=== PATIENT | male | born 1990 | race Caucasian/White ===

== ENCOUNTER 2016-07-01 08:24 | Emergency (ER) | payer MEDICAID, OTHER ==
[~2016-07-01] VITALS: Ht 177.8 cm; Wt 70.0 kg
[~2016-07-01 08:24] MED LIST: CLON1 PO
[2016-07-01 08:28] VITALS: BP 134/85; PULSE 95; RESP 15; TEMP 98.4; O2SAT 99
[2016-07-01] MEDS ORDERED: METOCLOPRAMIDE HCL 10 MG/2 ML VIAL IM ONE (09:45)
[2016-07-01] MEDS ORDERED: diphenhydrAMINE HCL 50 MG/ML VIAL IM ONE (09:45)
--- NOTE | 2016-07-01 09:59 | PD ---
HPI Chief Complaint: Headache Time Seen by Provider: 09:28 Travel History International Travel<30 days: No Contact w/Intl Traveler<30days: No Traveled to known affect area: No History of Present Illness HPI Patient is a 26-year-old male with history of headache, bipolar disorder/ anxiety here with complaint of headache. Patient works at a [employer]. Yesterday while at work he had a gradual onset frontal, bilateral headache. This is throbbing in nature. Some mild photophobia but no phonophobia. Nausea but no vomiting. Patient has a history of headaches, but states that this one is worse and that it has not responded to Motrin 400 mg, Aleve 1 at home. He has not had any nocturnal symptoms, fevers, chills. No familial history of intracranial mass lesion, aneurysm. PFSH Past Medical History Bipolar Disorder: Yes Anxiety: Yes (PTSD) Diabetes: No Diminished Hearing: No Headaches: Yes Musculoskeletal: Yes (2 BULGIC DISCS) Neurologic: Yes (QUESTION BRAIN DAMAGE) Psychiatric: Yes Immunizations Current: Yes Seizures: Yes (CHILDHOOD BUT GREW OUT OF THEM- GRANDMAL @ 4 Y/O) Social History Alcohol Use: Yes (beer socially, last drink was approx 11:30pm) Tobacco Use: Yes (1/2 ppd) Substance Use: Yes (Hx of ETOH abuse) Allergies-Medications (Allergen,Severity, Reaction): Coded Allergies: No Known Allergies (Verified , 06/03/13) Reported Meds & Prescriptions Reported Meds & Active Scripts Active Reported Klonopin (Clonazepam) 1 Mg Tab 1 Mg PO BID Review of Systems Except as stated in HPI: all other systems reviewed are Neg Physical Exam Narrative GENERAL: Well-appearing male in no acute distress SKIN: Focused skin assessment warm/dry. HEAD: Atraumatic. Normocephalic. EYES: Pupils equal and round. 3 mm, EMOI, no afferent pupillary defect. No scleral icterus. No injection or drainage. ENT: No nasal bleeding or discharge. Mucous membranes pink and moist. NECK: Supple without bruit CARDIOVASCULAR: Regular rate and rhythm. RESPIRATORY: No accessory muscle use. MUSCULOSKELETAL: Moves all extremities normally, normal gait NEUROLOGICAL: Awake and alert. No obvious cranial nerve deficits. Motor grossly within normal limits. Normal speech. PSYCHIATRIC: Appropriate mood and affect; insight and judgment normal. Data Data Last Documented VS Vital Signs Date Time Temp Pulse Resp B/P Pulse Ox O2 Delivery O2 Flow Rate FiO2 07/01/16 09:05 98 07/01/16 08:28 98.4 95 15 134/[address] Brain W/O Iv Contrast(Rout) (07/01/16 09:34) Diphenhydramine Inj (Benadryl Inj) (07/01/16 09:45) Metoclopramide Inj (Reglan Inj) (07/01/16 09:45) Ketorolac Inj (Toradol Inj) (07/01/16 10:15) MDM Medical Decision Making Medical Screen Exam Complete: Yes Emergency Medical Condition: Yes Medical Record Reviewed: Yes Differential Diagnosis 26-year-old male with history of headache, bipolar disorder/anxiety here with gradual onset headache since yesterday at around 1 PM. Differential includes tension headache, cluster headache, migraine headache. Patient has been afebrile, no neck stiffness or noctural headaches, is well-appearing, with a normal neurologic examination. This makes infection very unlikely. Patient does have history of headache with normal neurologic examination here, though complains that this is not responsive as his typical headaches in the past haven 't japr-yzy-vbnxeay NSAIDs. My suspicion for subarachnoid hemorrhage is exceedingly low. Narrative Course Patient given 50 mg Benadryl, [address] of the brain showed no acute abnormality. Patient felt improved after 60 mg Toradol and will be discharged home. I do not think he warrants lumbar puncture at this time. Diagnosis Primary Impression: Headache Qualified Code: R51 - Acute nonintractable headache, unspecified headache type Referrals: Primary Care Physician as needed Departure Forms: Tests/Procedures, Work Release Enter return to work date: July 02, 2016 Additional Instructions: Excedrin Migraine as needed for headache. Med/Other Pt SpecificInfo: No Change to Meds Disposition: 01 DISCHARGE HOME Condition: Stable Aydee Norris MD July 01, 2016 09:59
--- NOTE | 2016-07-01 10:08 | RADRPT ---
EXAM DATE/TIME: 07/01/2016 09:57 [facility] COMPARISON: CT BRAIN W/O CONTRAST, June 03, 2013, 7:32. INDICATIONS : Headache and nausea since yesterday. RADIATION DOSE: 39.34 CTDIvol (mGy) MEDICAL HISTORY : None SURGICAL HISTORY : None. ENCOUNTER: Initial ACUITY: 1 day PAIN SCALE: 2/10 LOCATION: Bilateral frontal TECHNIQUE: Multiple contiguous axial images were obtained of the head. Using automated exposure control and adj ustment of the mA and/or kV according to patient size, radiation dose was kept as low as reasonably a chievable to obtain optimal diagnostic quality images. FINDINGS: CEREBRUM: The ventricles are normal for age. No evidence of midline shift, mass lesion, hemorrhage or acute in farction. No extra-axial fluid collections are seen. Cavum septum pellucidum. POSTERIOR FOSSA: The cerebellum and brainstem are intact. The 4th ventricle is midline. The cerebellopontine angle i s unremarkable. EXTRACRANIAL: The visualized portion of the orbits is intact. SKULL: The calvaria is intact. No evidence of skull fracture. CONCLUSION: No acute intracranial disease. Karlo Swift MD on July 01, 2016 at 10:02 Board Certified Radiologist. This report was verified electronically.
[2016-07-01] MEDS ORDERED: KETOROLAC TROMETHAMINE 60 MG/2 ML (IM) VIAL IM ONE (10:15)
== END 2016-07-01 11:42 | disposition home or self-care (01) ==
LOC: NEPD 08:24
DX: R51 Headache (principal); R11.0 Nausea; H53.149 Visual discomfort, unspecified; F17.210 Nicotine dependence, cigarettes, uncomplicated; F10.10 Alcohol abuse, uncomplicated
CPT/HCPCS: 70450; 96372; 99285; J1200; J1885; J2765

== ENCOUNTER 2016-08-15 04:59 | Observation (INO) | payer OTHER ==
[2016-08-15] VITALS (8 sets, daily range): BP systolic 106–161; BP diastolic 55–90; PULSE 51–80; RESP 18–20; TEMP 97.2–98.2; O2SAT 95–100
[2016-08-15] MEDS ORDERED: SODIUM CHLOR 0.9% 1000 ML INJ 1,000 ML IV SCH (05:13)
[2016-08-15] MEDS ORDERED: ONDANSETRON HCL 4 MG/2 ML VIAL IVP ONE (05:15)
[2016-08-15] MEDS ORDERED: MORPHINE SULFATE 4 MG/ML INJ IV PUSH ONE ×2 (05:15→07:15)
[2016-08-15] MEDS ORDERED: SODIUM CHLORIDE 0.9% FLUSH 10 ML FLUSH IV FLUSH PRN (05:15)
[2016-08-15] MEDS ORDERED: METHOCARBAMOL INJ 1,000 MG in SODIUM CHLOR 0.9% 250 ML INJ 250 ML IV ONE (05:30)
[2016-08-15] MEDS ORDERED: KETOROLAC TROMETHAMINE 30 MG/ML (IVP) VIAL IV PUSH ONE (05:30)
--- NOTE | 2016-08-15 05:30 | PD ---
HPI Chief Complaint: Back/ Neck Pain or Injury Time Seen by Provider: 05:21 Travel History International Travel<30 days: No Contact w/Intl Traveler<30days: No Traveled to known affect area: No History of Present Illness HPI Patient comes in complaining of thoracic spine pain that began around 1900 yesterday. Patient states pain began while he was playing video games. Patient states his tried to massage his back and he took [id number] pain reliever with minimal to no relief of symptoms. Patient reports told him that he was crying out in pain throughout the night. Patient states he awoke at approximately 4:22 this morning went to go the restroom and could not get out of bed secondary to pain. Patient states is the worst pain he has ever felt describes it as a sharp pain that radiates laterally to the left around to the anterior chest. Denies any family history of cardiac disease. Patient reports smoking tobacco but denies any IV or illicit drug use. Denies any fevers. Denies any nausea, vomiting, diaphoresis, headache, neck pain, numbness or tingling anywhere, loss or change in bowel or bladder, or trauma. Patient reports pain takes his breath away making him feel short of breathe. Pain is worse with movement. PFSH Past Medical History Bipolar Disorder: Yes Anxiety: Yes (PTSD) Diabetes: No Diminished Hearing: No Headaches: Yes Musculoskeletal: Yes (2 BULGIC DISCS) Neurologic: Yes (QUESTION BRAIN DAMAGE) Psychiatric: Yes Immunizations Current: Yes Seizures: Yes (IN CHILDHOOD ) Past Surgical History Appendectomy: Yes Social History Alcohol Use: Yes Tobacco Use: Yes (1/2 ppd) Substance Use: Yes (Hx of ETOH abuse) Allergies-Medications (Allergen,Severity, Reaction): Coded Allergies: No Known Allergies (Verified , 06/03/13) Reported Meds & Prescriptions Reported Meds & Active Scripts Active Reported Klonopin (Clonazepam) 1 Mg Tab 1 Mg PO BID Review of Systems Except as stated in HPI: all other systems reviewed are Neg Physical Exam Narrative GENERAL: Well-developed, well nourished, in mild distress, and non-ill appearing. SKIN: Focused skin assessment warm and dry. HEAD: Atraumatic. Normocephalic. EYES: Pupils equal and round. EOMI. No scleral icterus. No injection or drainage. ENT: No nasal bleeding or discharge. Mucous membranes pink and moist. Poor dentition noted. NECK: Trachea midline. Supple. No nuclear rigidity. CARDIOVASCULAR: Regular rate and rhythm. No murmur appreciated. RESPIRATORY: No accessory muscle use. No respiratory distress. Clear to auscultation. Breath sounds equal bilaterally. GASTROINTESTINAL: Abdomen soft, non-tender, nondistended. Hepatic and splenic margins not palpable. Normal bowel sounds 4. No pulsatile mass. No CVA tenderness. MUSCULOSKELETAL: No obvious deformities. No clubbing. No cyanosis. No edema. Full range of motion. There is no crepitus or midline thoracic spine. Patient does report tenderness over the thoracic spine. NEUROLOGICAL: Awake and alert. No obvious cranial nerve deficits. Motor grossly within normal limits. Normal speech. PSYCHIATRIC: Appropriate mood and affect; insight and judgment normal. Data Data Last Documented VS Vital Signs Date Time Temp Pulse Resp B/P Pulse Ox O2 Delivery O2 Flow Rate FiO2 08/15/16 05:04 97.6 80 18 143/85 98 Orders Complete Blood Count With Diff (08/15/16 05:13) Comprehensive Metabolic Panel (08/15/16 05:13) Lipase (08/15/16 05:13) Prothrombin Time / Inr (Pt) (08/15/16 05:13) Act Partial Throm Time (Ptt) (08/15/16 05:13) Urinalysis - C+S If Indicated (08/15/16 05:13) Iv Access Insert/Monitor (08/15/16 05:13) Ecg Monitoring (08/15/16 05:13) Oximetry (08/15/16 05:13) Morphine Inj (Morphine Inj) (08/15/16 05:15) Ondansetron Inj (Zofran Inj) (08/15/16 05:15) Sodium Chlor 0.9% 1000 Ml Inj (Ns 1000 M (08/15/16 05:13) Sodium Chloride 0.9% Flush (Ns Flush) (08/15/16 05:15) Electrocardiogram (08/15/16 05:13) Chest, Pa & Lat (08/15/16 ) Ketorolac Inj (Toradol Inj) (08/15/16 05:30) Methocarbamol Inj (Robaxin Inj) (08/15/16 05:30) MDM Medical Decision Making Medical Screen Exam Complete: Yes Emergency Medical Condition: Yes Differential Diagnosis Pancreatitis, pneumonia, pneumothorax, renal calculi, electrolyte abnormality, musculoskeletal pain, other Narrative Course Patient was seen and examined. Initial laboratory and radiologic studies were ordered. Patient transferred to the medical bed and care was transferred to Dr. Umaña. Please see her documentation for final diagnosis and disposition. Robbie Ryan Aug 15, 2016 05:30
[2016-08-15 05:52] LABS: AUTOMATED NEUTROPHIL # 3.2 TH/MM3 (1.8-7.7); BASOPHIL % 0.6 % (0.0-2.0); EOSINOPHIL # 0.2 TH/MM3 (0-0.4); EOSINOPHIL % 2.9 % (0.0-4.0); HEMATOCRIT 44.4 % (39.0-51.0); HEMO FLAGS DIFF FINAL; LYMPH % 42.8 % (9.0-44.0); MEAN CELL VOLUME 84.5 FL (80.0-100.0); MEAN CORPUSCULAR HEMOGLOBIN 28.8 PG (27.0-34.0); MEAN CORPUSCULAR HGB CONC 34.1 % (32.0-36.0); MONO % 8.1 % (0.0-8.0); NEUT % 45.6 % (16.0-70.0); PLATELET COUNT 177 TH/MM3 (150-450); RED BLOOD COUNT 5.26 MIL/MM3 (4.50-5.90); RED CELL DISTRIBUTION WIDTH 12.4 % (11.6-17.2); WHITE BLOOD COUNT 6.9 TH/MM3 (4.0-11.0)
[2016-08-15 06:08] LABS: APTT (PATIENT) 27.3 SEC (24.3-30.1); PROTHROMBIN TIME - PATIENT 10.6 SEC (9.8-11.6)
--- NOTE | 2016-08-15 06:18 | RADRPT ---
EXAM DATE/TIME: 08/15/2016 05:53 [facility] COMPARISON: CHEST PA & LAT, June 03, 2013, 7:28. INDICATIONS : Shortness of breath and left sided chest/back pain. MEDICAL HISTORY : None. SURGICAL HISTORY : None. ENCOUNTER: Initial ACUITY: 1 day PAIN SCORE: Non-responsive. LOCATION: chest FINDINGS: PA and lateral views of the chest demonstrate the lungs to be symmetrically aerated without evidence of mass, infiltrate or effusion. The cardiomediastinal contours are unremarkable. Osseous structure s are intact. CONCLUSION: No acute cardiopulmonary process. Bryson Zhao MD on August 15, 2016 at 6:16 Board Certified Radiologist. This report was verified electronically.
[2016-08-15 06:21] LABS: ANION GAP 8 MEQ/L (5-15); AST (GOT) 16 U/L (15-37); BICARBONATE 25.4 MEQ/L (21.0-32.0); BLOOD UREA NITROGEN 14 MG/DL (7-18); CHLORIDE 106 MEQ/L (98-107); GLOMERULAR FILTRATION RATE 91 ML/MIN (>89); POTASSIUM 3.6 MEQ/L (3.5-5.1); SODIUM (NA) 139 MEQ/L (136-145)
[2016-08-15 06:23] LABS: ALT (GPT) 21 U/L (12-78)
[2016-08-15 06:24] LABS: ALKALINE PHOSPHATASE 93 U/L (45-117); TOTAL BILIRUBIN ADULT 0.6 MG/DL (0.2-1.0)
--- NOTE | 2016-08-15 07:17 | PD ---
Physical Exam Narrative I, Dr. Umaña, have reviewed the advance practice practitioner's documentation and am in agreement, met with the patient face to face, made the diagnosis, and the medical decision making was done by me. *My assessment and Findings: Patient is a 26 year old male who comes in complaining of back pain that radiates to the front. He says it started last night and got worse. He does admit to drinking heavily over the weekend. On exam, pain cannot be elicited. Abdomen is soft and nontender. Data Data Last Documented VS Vital Signs Date Time Temp Pulse Resp B/P Pulse Ox O2 Delivery O2 Flow Rate FiO2 08/15/16 06:26 18 08/15/16 05:30 98 Room Air 08/15/16 05:04 97.6 80 143/85 Orders Complete Blood Count With Diff (08/15/16 05:13) Comprehensive Metabolic Panel (08/15/16 05:13) Lipase (08/15/16 05:13) Prothrombin Time / Inr (Pt) (08/15/16 05:13) Act Partial Throm Time (Ptt) (08/15/16 05:13) Urinalysis - C+S If Indicated (08/15/16 05:13) Iv Access Insert/Monitor (08/15/16 05:13) Ecg Monitoring (08/15/16 05:13) Oximetry (08/15/16 05:13) Morphine Inj (Morphine Inj) (08/15/16 05:15) Ondansetron Inj (Zofran Inj) (08/15/16 05:15) Sodium Chlor 0.9% 1000 Ml Inj (Ns 1000 M (08/15/16 05:13) Sodium Chloride 0.9% Flush (Ns Flush) (08/15/16 05:15) Electrocardiogram (08/15/16 05:13) Chest, Pa & Lat (08/15/16 ) Ketorolac Inj (Toradol Inj) (08/15/16 05:30) Methocarbamol Inj (Robaxin Inj) (08/15/16 05:30) Morphine Inj (Morphine Inj) (08/15/16 07:15) Labs Laboratory Tests Test 08/15/16 05:33 White Blood Count 6.9 TH/MM3 Red Blood Count 5.26 MIL/MM3 Hemoglobin 15.2 GM/DL Hematocrit 44.4 % Mean Corpuscular Volume 84.5 FL Mean Corpuscular Hemoglobin 28.8 PG Mean Corpuscular Hemoglobin 34.1 % Concent Red Cell Distribution Width 12.4 % Platelet Count 177 TH/MM3 Mean Platelet Volume 8.7 FL Neutrophils (%) (Auto) 45.6 % Lymphocytes (%) (Auto) 42.8 % Monocytes (%) (Auto) 8.1 % Eosinophils (%) (Auto) 2.9 % Basophils (%) (Auto) 0.6 % Neutrophils # (Auto) 3.2 TH/MM3 Lymphocytes # (Auto) 3.0 TH/MM3 Monocytes # (Auto) 0.6 TH/MM3 Eosinophils # (Auto) 0.2 TH/MM3 Basophils # (Auto) 0.0 TH/MM3 CBC Comment DIFF FINAL Differential Comment Prothrombin Time 10.6 SEC Prothromb Time International 1.0 RATIO Ratio Activated Partial 27.3 SEC Thromboplast Time Sodium Level 139 MEQ/L Potassium Level 3.6 MEQ/L Chloride Level 106 MEQ/L Carbon Dioxide Level 25.4 MEQ/L Anion Gap 8 MEQ/L Blood Urea Nitrogen 14 MG/DL Creatinine 1.01 MG/DL Estimat Glomerular Filtration 91 ML/MIN Rate Random Glucose 105 MG/DL Calcium Level 9.0 MG/DL Total Bilirubin 0.6 MG/DL Aspartate Amino Transf 16 U/L (AST/SGOT) Alanine Aminotransferase 21 U/L (ALT/SGPT) Alkaline Phosphatase 93 U/L Total Protein 7.0 GM/DL Albumin 4.0 GM/DL Lipase 623 U/L [facility] Supervised Visit with SARA: Yes Narrative Course Labs show an elevated lipase to 623. Patient is still having pain. He was given Toradol and Morphine as well as IVF. Given additional morphine. Patient will be placed on observation. Diagnosis Primary Impression: Pancreatitis Qualified Code: K85.20 - Alcohol-induced acute pancreatitis without infection or necrosis Admitting Information Admitting Physician Requests: Observation Condition: Stable Juani Umaña MD Aug 15, 2016 07:17
[2016-08-15] MEDS ORDERED: ONDANSETRON HCL 4 MG/2 ML VIAL IV PUSH PRN (08:00)
[2016-08-15] MEDS: PANTOPRAZOLE SODIUM 40 MG VIAL IV PUSH SCH (08:00)
[2016-08-15] MEDS: SODIUM CHLOR 0.9% 1000 ML INJ 1,000 ML IV SCH ×2 (11:07→17:27)
[2016-08-15 11:32] LABS: BACTERIA, URINE RARE /hpf; BLOOD, URINE NEG (NEG); CALCIUM OXALATE CRYSTALS,URINE OCC /hpf; COMMENT (UR) CULT NOT INDICATED; CULTURE IF INDICATED CULT NOT INDICATED; GLUCOSE,URINE NEG (NEG); KETONE, URINE NEG (NEG); MUCUS URINE MANY /lpf (OCC); NITRITE,URINE NEG (NEG); URINE COLOR YELLOW (YELLW/STRAW)
--- NOTE | 2016-08-15 11:44 | HHI.HP ---
[facility] Service [place] [facility] Primary Care Physician No Primary Care Physician Admission Diagnosis pancreatitis, Diagnoses: (1) Pancreatitis Diagnosis: Principal Chief Complaint: back pain Travel History International Travel<30 Days: No Contact w/Intl Traveler <30 Da: No Traveled to Known Affected Are: No History of Present Illness patient is a 26 y/o male with history of GERD who presented to ER with back pain. he says that he started to have back pain last night after he had his dinner. he says that he went to bed but the pain got worse and he woke up again earlier this morning with back pain. the pain had some radiation to the front.pain was associated with mild nausea. he denies any emesis,fever,change in BM, chest pain or sob. Review of Systems Constitutional: DENIES: Fever, Weight loss, Chills, Night Sweats Eyes: DENIES: Blurred vision, Diplopia, Vision loss, Double Vision Ears, nose, mouth, throat: DENIES: Tinnitus, Vertigo, Throat pain, Epistaxis Respiratory: DENIES: Apneas, Cough, Snoring, Wheezing, Hemoptysis, Sputum production, Shortness of breath Cardiovascular: DENIES: Chest pain, Palpitations, Syncope, Dyspnea on Exertion , PND, Lower Extremity Edema, Orthopnea, Claudication Gastrointestinal: COMPLAINS OF: Abdominal pain, Nausea, DENIES: Black stools, Bloody stools, Constipation, Diarrhea, Vomiting, Difficulty Swallowing, Anorexia Genitourinary: DENIES: Urinary frequency, Urgency, Hematuria, Dysuria Musculoskeletal: DENIES: Joint pain, Muscle aches, Stiffness, Joint Swelling Integumentary: DENIES: Rash Neurologic: DENIES: Abnormal gait, Headache, Localized weakness, Paresthesias, Seizures, Speech Problems, Tremor, Poor Balance Psychiatric: DENIES: Anxiety, Confusion, Mood changes, Depression, Hallucinations, Agitation, Suicidal Ideation, Homicidal Ideation, Delusions Past Family Social History Past Medical History GERD Past Surgical History appendectomy Reported Medications prilosec as needed. Allergies: Coded Allergies: No Known Allergies (Verified , 06/03/13) Active Ordered Medications Current Medications Morphine Sulfate (Morphine Inj) 2 mg ONCE ONCE IV PUSH Last administered on 05:41; Start 08/15/16 at 05:15; Stop 08/15/16 at 05:16; Status DC Ondansetron HCl 4 mg 4 mg ONCE ONCE IVP Last administered on 08/15/16 05:41; Start 08/15/16 at 05:15; Stop 08/15/16 at 05:16; Status DC Sodium Chloride (NS 1000 ml Inj) 1,000 ml @ 1,000 mls/hr Q1H IV Last administered on 08/15/16 05:40; Start 08/15/16 at 05:13; Stop 08/15/16 at 06:12; Status DC Sodium Chloride (NS Flush) 2 ml UNSCH PRN IV FLUSH FLUSH AFTER USING IV ACCESS ; Start 08/15/16 at 05:15 Ketorolac Tromethamine 30 mg 30 mg ONCE ONCE IV PUSH Last administered on 06:25; Start 08/15/16 at 05:30; Stop 08/15/16 at 05:31; Status DC Methocarbamol/ Sodium Chloride (Robaxin Inj/NS 250 ml Inj) 260 ml @ 520 mls/hr ONCE ONCE IV Last administered on 08/15/16 06:25; Start 08/15/16 at 05:30; Stop 08/15/16 at 05:59; Status DC Morphine Sulfate (Morphine Inj) 4 mg ONCE ONCE IV PUSH Last administered on 08:40; Start 08/15/16 at 07:15; Stop 08/15/16 at 07:16; Status DC Ondansetron HCl (Zofran Inj) 4 mg Q8HR PRN IV PUSH NAUSEA; Start 08/15/16 at 08: 00 Pantoprazole Sodium 40 mg 40 mg Q24H IV PUSH Last administered on 08/15/16 08: 00; Start 08/15/16 at 08:00 Sodium Chloride (NS 1000 ml Inj) 1,000 ml @ 125 mls/hr Q8H IV Last administered on 08/15/16 11:07; Start 08/15/16 at 09:00 Morphine Sulfate (Morphine Inj) 2 mg Q4HR PRN IV PUSH PAIN SCALE 1 TO 10; Start 08/15/16 at 08:30 Family History not relevant to this presentation. Social History smokes half a pack a day. drinks occasionally. Physical Exam Vital Signs Vital Signs Date Time Temp Pulse Resp B/P Pulse Ox O2 Delivery O2 Flow Rate FiO2 08/15/16 09:07 98.2 52 18 122/66 99 08/15/16 08:48 55 18 131/71 99 Room Air 08/15/16 08:45 18 08/15/16 07:52 18 08/15/16 07:38 51 18 113/66 98 08/15/16 06:26 18 08/15/16 05:30 98 Room Air 08/15/16 05:04 97.6 80 18 143/85 98 Physical Exam GENERAL: This is a well-nourished, well-developed patient, in no apparent distress. SKIN: No rashes, ecchymoses or lesions. Cool and dry. HEAD: Atraumatic. Normocephalic. No temporal or scalp tenderness. EYES: Pupils equal round and reactive. Extraocular motions intact. No scleral icterus. No injection or drainage. ENT: Nose without bleeding, purulent drainage or septal hematoma. Throat without erythema, tonsillar hypertrophy or exudate. Uvula midline. Airway patent. NECK: Trachea midline. No JVD or lymphadenopathy. Supple, nontender, no meningeal signs. CARDIOVASCULAR: Regular rate and rhythm without murmurs, gallops, or rubs. RESPIRATORY: Clear to auscultation. Breath sounds equal bilaterally. No wheezes , rales, or rhonchi. GASTROINTESTINAL: Abdomen soft, non-tender, nondistended. No hepato-splenomegaly , or palpable masses. No guarding. MUSCULOSKELETAL: Extremities without clubbing, cyanosis, or edema. No joint tenderness, effusion, or edema noted. No calf tenderness. Negative Homans sign bilaterally. NEUROLOGICAL: Awake and alert. Cranial nerves II through XII intact. Motor and sensory grossly within normal limits. Five out of 5 muscle strength in all muscle groups. Normal speech. Laboratory Laboratory Tests Test 08/15/16 05:33 White Blood Count 6.9 Red Blood Count 5.26 Hemoglobin 15.2 Hematocrit 44.4 Mean Corpuscular Volume 84.5 Mean Corpuscular Hemoglobin 28.8 Mean Corpuscular Hemoglobin 34.1 Concent Red Cell Distribution Width 12.4 Platelet Count 177 Mean Platelet Volume 8.7 Neutrophils (%) (Auto) 45.6 Lymphocytes (%) (Auto) 42.8 Monocytes (%) (Auto) 8.1 Eosinophils (%) (Auto) 2.9 Basophils (%) (Auto) 0.6 Neutrophils # (Auto) 3.2 Lymphocytes # (Auto) 3.0 Monocytes # (Auto) 0.6 Eosinophils # (Auto) 0.2 Basophils # (Auto) 0.0 CBC Comment DIFF FINAL Differential Comment Prothrombin Time 10.6 Prothromb Time International 1.0 Ratio Activated Partial 27.3 Thromboplast Time Sodium Level 139 Potassium Level 3.6 Chloride Level 106 Carbon Dioxide Level 25.4 Anion Gap 8 Blood Urea Nitrogen 14 Creatinine 1.01 Estimat Glomerular Filtration 91 Rate Random Glucose 105 Calcium Level 9.0 Total Bilirubin 0.6 Aspartate Amino Transf 16 (AST/SGOT) Alanine Aminotransferase 21 (ALT/SGPT) Alkaline Phosphatase 93 Total Protein 7.0 Albumin 4.0 Lipase 623 Result Diagram: 08/15/16 0533 08/15/16 0533 Imaging Last Impressions Chest X-Ray 08/15/16 0000 Signed Impressions: Service Date/Time: Monday, August 15, 2016 05:53 - CONCLUSION: No acute cardiopulmonary process. Bryson Zhao MD Assessment and Plan Assessment and Plan A/P -acute pancreatitis start on liquid diet and advance the diet as tolerated- check the lipase in am. continue with pain control. check GB sonogram. -GERD; start PPI Discussed Condition With the patient and RN. ER physician. Problem Qualifiers (1) Pancreatitis: Qualified Code: K85.20 - Alcohol-induced acute pancreatitis without infection or necrosis Liam Eastman MD Aug 15, 2016 11:44
[2016-08-15] MEDS ORDERED: ACETAMINOPHEN/HYDROcodone 325 MG/5 MG TAB PO PRN ×2 (11:45)
--- NOTE | 2016-08-15 13:22 | EKG ---
Date Performed: 08/15/2016 Time Performed: 05:30:16 PTAGE: 26 years EKG: Sinus rhythm WITH MARKED SINUS ARRHYTHMIA BORDERLINE ECG NO PREVIOUS TRACING DOCTOR: Tyrell Marsh Interpretating Date/Time 08/15/2016 13:21:40
--- NOTE | 2016-08-15 15:18 | RADRPT ---
EXAM DATE/TIME: 08/15/2016 13:26 [facility] COMPARISON: No previous studies available for comparison. INDICATIONS : Abdominal pain. Nausea. MEDICAL HISTORY : GERD. PTSD. Bipolar disorder. Substance abuse. SURGICAL HISTORY : Appendectomy. ENCOUNTER: Initial ACUITY: 1 day PAIN SCORE: 5/10 LOCATION: Right upper quadrant MEASUREMENTS: LIVER: 16.7 cm length COMMON DUCT: 2 mm RIGHT KIDNEY: 10.6 x 4.1 x 4.0 cm FINDINGS: LIVER: Normal echotexture without focal lesion or ductal dilatation. COMMON DUCT: No intraluminal mass or stone visualized. GALLBLADDER: Contains no stones, demonstrates no wall thickening or pericholecystic fluid. PANCREAS: The visualized portions are within normal limits. RIGHT KIDNEY: No evidence of hydronephrosis, stone, or mass. CONCLUSION: 1. Unremarkable right upper quadrant ultrasound examination. 2. Specifically, no sonographic evidence of cholelithiasis or acute cholecystitis. Franki Quinones MD on August 15, 2016 at 15:16 Board Certified Radiologist. This report was verified electronically.
[2016-08-15] MEDS: MORPHINE SULFATE 8 MG/ML INJ IV PUSH PRN ×2 (18:41→23:12)
[2016-08-16 00:27] VITALS: BP 136/68; PULSE 54; RESP 16; TEMP 98; O2SAT 97
[2016-08-16] MEDS: SODIUM CHLOR 0.9% 1000 ML INJ 1,000 ML IV SCH ×2 (01:26→09:00)
[2016-08-16] MEDS: MORPHINE SULFATE 8 MG/ML INJ IV PUSH PRN ×2 (04:08→11:33)
[2016-08-16 04:22] VITALS: BP 129/72; PULSE 45; RESP 17; TEMP 98.2; O2SAT 97
[2016-08-16 08:00] VITALS: BP 116/71; PULSE 53; RESP 17; TEMP 98.5; O2SAT 99
[2016-08-16] MEDS: PANTOPRAZOLE SODIUM 40 MG VIAL IV PUSH SCH (08:39)
--- NOTE | 2016-08-16 11:08 | HHI.PR ---
Subjective Remarks resting comfortably with no distress. says that his back pain has improved. no nausea or vomiting. no other complaints. wants to go home. Objective Vitals Vital Signs Date Time Temp Pulse Resp B/P Pulse Ox O2 Delivery O2 Flow Rate FiO2 08/16/16 08:00 98.5 53 17 116/71 99 08/16/16 04:22 98.2 45 17 129/72 97 08/16/16 04:14 20 08/16/16 00:27 98.0 54 16 136/68 97 08/15/16 21:09 97.2 57 20 119/73 100 08/15/16 16:09 14 08/15/16 14:59 97.6 53 18 106/55 98 08/15/16 12:11 64 18 161/90 95 I/O 08/15/16 08/15/16 08/15/16 08/16/16 08/16/16 08/16/16 07:00 15:00 23:00 07:00 15:00 23:00 Intake Total 1350 ml Balance 1350 ml Intake Oral 350 ml IV Total 1000 ml # Voids 5 Result Diagram: 08/15/16 0533 08/15/16 0533 Imaging Last Impressions Gall Bladder Ultrasound 08/15/16 0000 Signed Impressions: Service Date/Time: Monday, August 15, 2016 13:26 - CONCLUSION: 1. Unremarkable right upper quadrant ultrasound examination. 2. Specifically, no sonographic evidence of cholelithiasis or acute cholecystitis. Franki Quinones MD Chest X-Ray 08/15/16 0000 Signed Impressions: Service Date/Time: Monday, August 15, 2016 05:53 - CONCLUSION: No acute cardiopulmonary process. Bryson Zhao MD Objective Remarks GENERAL: This is a well-nourished, well-developed patient, in no apparent distress. CARDIOVASCULAR: Regular rate and regular rhythm without murmurs, gallops, or rubs. RESPIRATORY: Clear to auscultation. Breath sounds equal bilaterally. No wheezes , rales, or rhonchi. GASTROINTESTINAL: Abdomen soft, non-tender, nondistended. Normal, active bowel sounds MUSCULOSKELETAL: Extremities without clubbing, cyanosis, or edema. NEURO: Alert & Oriented x4 to person, place, time, situation. Moves all ext x4 Procedures none Medications and IVs Current Medications Morphine Sulfate (Morphine Inj) 2 mg ONCE ONCE IV PUSH Last administered on 05:41; Start 08/15/16 at 05:15; Stop 08/15/16 at 05:16; Status DC Ondansetron HCl 4 mg 4 mg ONCE ONCE IVP Last administered on 08/15/16 05:41; Start 08/15/16 at 05:15; Stop 08/15/16 at 05:16; Status DC Sodium Chloride (NS 1000 ml Inj) 1,000 ml @ 1,000 mls/hr Q1H IV Last administered on 08/15/16 05:40; Start 08/15/16 at 05:13; Stop 08/15/16 at 06:12; Status DC Sodium Chloride (NS Flush) 2 ml UNSCH PRN IV FLUSH FLUSH AFTER USING IV ACCESS ; Start 08/15/16 at 05:15 Ketorolac Tromethamine 30 mg 30 mg ONCE ONCE IV PUSH Last administered on 06:25; Start 08/15/16 at 05:30; Stop 08/15/16 at 05:31; Status DC Methocarbamol/ Sodium Chloride (Robaxin Inj/NS 250 ml Inj) 260 ml @ 520 mls/hr ONCE ONCE IV Last administered on 08/15/16 06:25; Start 08/15/16 at 05:30; Stop 08/15/16 at 05:59; Status DC Morphine Sulfate (Morphine Inj) 4 mg ONCE ONCE IV PUSH Last administered on 08:40; Start 08/15/16 at 07:15; Stop 08/15/16 at 07:16; Status DC Ondansetron HCl (Zofran Inj) 4 mg Q8HR PRN IV PUSH NAUSEA Last administered on 08/15/16 18:40; Start 08/15/16 at 08:00 Pantoprazole Sodium 40 mg 40 mg Q24H IV PUSH Last administered on 08/16/16 08: 39; Start 08/15/16 at 08:00 Sodium Chloride (NS 1000 ml Inj) 1,000 ml @ 125 mls/hr Q8H IV Last administered on 08/16/16 01:26; Start 08/15/16 at 09:00 Morphine Sulfate (Morphine Inj) 2 mg Q4HR PRN IV PUSH BREAKTHROUGH PAIN Last administered on 08/16/16 04:08; Start 08/15/16 at 08:30 Acetaminophen/ Hydrocodone Bitart ([place] 5-325 Mg) 1 tab Q4H PRN PO PAIN SCALE 1 TO 5; Start 08/15/16 at 11:45 Acetaminophen/ Hydrocodone Bitart ([place] 5-325 Mg) 2 tab Q4H PRN PO PAIN 6-10 Last administered on 08/15/16 14:41; Start 08/15/16 at 11:45 A/P Assessment and Plan A/P -acute pancreatitis- improved. advance the diet- continue with pain control. -GERD; continue PPI Discharge Planning dc home later today if tolerated the diet. see med list. f/y; pcp. d/w the patient and BANDAR. Liam Eastman MD Aug 16, 2016 11:08
[2016-08-16] MEDS ORDERED: HYDR-3516 PO (11:09)
[2016-08-16] MEDS ORDERED: PROT40TA PO (11:09)
--- NOTE | 2016-08-16 11:10 | HHI.DS ---
Discharge Summary Admission Date Aug 15, 2016 at 07:59 Discharge Date: Aug 16, 2016 Admitting Diagnosis pancreatitis, (1) Pancreatitis ICD Code: K85.90 Diagnosis: Principal Procedures none Brief History - From Admission patient is a 26 y/o male with history of GERD who presented to ER with back pain. he says that he started to have back pain last night after he had his dinner. he says that he went to bed but the pain got worse and he woke up again earlier this morning with back pain. the pain had some radiation to the front.pain was associated with mild nausea. he denies any emesis,fever,change in BM, chest pain or sob. CBC/BMP: 08/15/16 0533 08/15/16 0533 Significant Findings Laboratory Tests Test 08/15/16 08/15/16 05:33 11:00 Monocytes (%) (Auto) 8.1 % (0.0-8.0) Lipase 623 U/L (73-393) Urine Specific [place] 1.041 (1.002-1.035) Urine Protein 30 mg/dL (NEG-TRACE) Urine Calcium Oxalate Crystals OCC /hpf (NONE) Urine Bacteria RARE /hpf (NONE) Urine Mucus MANY /lpf (OCC) Imaging Last Impressions Gall Bladder Ultrasound 08/15/16 0000 Signed Impressions: Service Date/Time: Monday, August 15, 2016 13:26 - CONCLUSION: 1. Unremarkable right upper quadrant ultrasound examination. 2. Specifically, no sonographic evidence of cholelithiasis or acute cholecystitis. Franki Quinones MD Chest X-Ray 08/15/16 0000 Signed Impressions: Service Date/Time: Monday, August 15, 2016 05:53 - CONCLUSION: No acute cardiopulmonary process. Bryson Zhao MD PE at Discharge GENERAL: This is a well-nourished, well-developed patient, in no apparent distress. CARDIOVASCULAR: Regular rate and regular rhythm without murmurs, gallops, or rubs. RESPIRATORY: Clear to auscultation. Breath sounds equal bilaterally. No wheezes , rales, or rhonchi. GASTROINTESTINAL: Abdomen soft, non-tender, nondistended. Normal, active bowel sounds MUSCULOSKELETAL: Extremities without clubbing, cyanosis, or edema. NEURO: Alert & Oriented x4 to person, place, time, situation. Moves all ext x4 Hospital Course -acute pancreatitis- improved. advance the diet- continue with pain control. -GERD; continue PPI Pt Condition on Discharge: Good Discharge Disposition: Discharge Home Discharge Time: <= 30 minutes Discharge Instructions DIET: Follow Instructions for: Heart Healthy Diet, Low Fat Diet Activities you can perform: Regular-No Restrictions Follow up Referrals: PCP Follow-up New Medications: Pantoprazole (Protonix) 40 Mg Tab 40 MG PO DAILY Reflux #14 Ref 0 TAB Hydrocodone-Acetaminophen (Hydrocodone-Acetaminophen) 5-325 mg Tab 1 TAB PO Q8HR PRN pain #6 Ref 0 TAB Continued Medications: Clonazepam (Klonopin) 1 Mg Tab 1 MG PO BID TAB Liam Eastman MD Aug 16, 2016 11:10
--- NOTE | 2016-08-16 11:10 | HHI.DCPOC ---
Discharge Care Plan Diagnosis: (1) Pancreatitis Your Health Problems Are: Inflammation Goals to Promote Your Health * To prevent worsening of your condition and complications * To maintain your health at the optimal level Directions to Meet Your Goals Take your medications as prescribed Follow your dietary instruction Follow activity as directed Keep your appointments as scheduled Take your immunizations and boosters as scheduled If your symptoms worsen call your PCP, if no PCP go to Urgent Care Center or Emergency Room Smoking is Dangerous to Your Health. Avoid second hand smoke Call the 24-hour hour crisis hotline for domestic abuse at Liam Eastman MD Aug 16, 2016 11:09
[2016-08-16 12:00] VITALS: BP 125/76; PULSE 51; RESP 18; TEMP 98.6; O2SAT 99
== END 2016-08-16 13:59 | disposition home or self-care (01) ==
LOC: NEPE 04:59 → NEDA 07:59 → NEPFCDU 09:01
PROVIDERS: ADMIT Internal Medicine; ATTEND Internal Medicine
DX: K85.20 Alcohol induced acute pancreatitis without necrosis or infection (principal); R06.02 Shortness of breath; R74.8 Abnormal levels of other serum enzymes; I49.8 Other specified cardiac arrhythmias; M54.6 Pain in thoracic spine; F10.10 Alcohol abuse, uncomplicated; K21.9 Gastro-esophageal reflux disease without esophagitis; F43.10 Post-traumatic stress disorder, unspecified; F31.9 Bipolar disorder, unspecified; F17.200 Nicotine dependence, unspecified, uncomplicated; Z79.899 Other long term (current) drug therapy
CPT/HCPCS: 71020; 76705; 80053; 81001; 83690; 85025; 85610; 85730; 93005; 96361; 96365; 96375; 99285; C9113; G0378; J1885; J2270; J2405; J2800; J7030; J7050

== ENCOUNTER 2016-09-29 09:09 | Emergency (ER) | payer OTHER ==
[~2016-09-29] VITALS: Ht 170.2 cm; Wt 78.0 kg
[~2016-09-29 09:09] MED LIST changes: +HYDR-3516 PO; +PROT40TA PO
[2016-09-29 09:11] VITALS: BP 131/80; PULSE 82; RESP 20; TEMP 98.8; O2SAT 98
[2016-09-29 10:12] LABS: AUTOMATED NEUTROPHIL # 4.2 TH/MM3 (1.8-7.7); BASOPHIL % 0.5 % (0.0-2.0); EOSINOPHIL # 0.1 TH/MM3 (0-0.4); EOSINOPHIL % 1.5 % (0.0-4.0); HEMATOCRIT 46.7 % (39.0-51.0); HEMO FLAGS DIFF FINAL; LYMPH % 26.3 % (9.0-44.0); LYMPHOCYTE # 1.7 TH/MM3 (1.0-4.8); MEAN CELL VOLUME 84.5 FL (80.0-100.0); MEAN CORPUSCULAR HEMOGLOBIN 29.5 PG (27.0-34.0); MEAN CORPUSCULAR HGB CONC 34.9 % (32.0-36.0); MONO % 8.4 % (0.0-8.0); NEUT % 63.3 % (16.0-70.0); PLATELET COUNT 207 TH/MM3 (150-450); RED BLOOD COUNT 5.53 MIL/MM3 (4.50-5.90); RED CELL DISTRIBUTION WIDTH 12.9 % (11.6-17.2); WHITE BLOOD COUNT 6.6 TH/MM3 (4.0-11.0)
[2016-09-29 10:31] LABS: BLOOD, URINE NEG (NEG); COMMENT (UR) CULT NOT INDICATED; CULTURE IF INDICATED CULT NOT INDICATED; GLUCOSE,URINE NEG (NEG); KETONE, URINE NEG (NEG); MUCUS URINE FEW /lpf (OCC); NITRITE,URINE NEG (NEG); PH, URINE 6.5 (5.0-8.5); URINE COLOR YELLOW (YELLW/STRAW)
[2016-09-29 10:54] LABS: ALT (GPT) 20 U/L (12-78); ANION GAP 9 MEQ/L (5-15); AST (GOT) 25 U/L (15-37); BICARBONATE 25.3 MEQ/L (21.0-32.0); BLOOD UREA NITROGEN 16 MG/DL (7-18); CHLORIDE 102 MEQ/L (98-107); GLOMERULAR FILTRATION RATE 85 ML/MIN (>89); POTASSIUM 3.9 MEQ/L (3.5-5.1); SODIUM (NA) 136 MEQ/L (136-145)
[2016-09-29 10:55] LABS: ALKALINE PHOSPHATASE 95 U/L (45-117); TOTAL BILIRUBIN ADULT 1.2 MG/DL (0.2-1.0)
[2016-09-29 11:48] VITALS: BP 123/79; PULSE 63; RESP 18; TEMP 98.1; O2SAT 100
[2016-09-29] MEDS ORDERED: SODIUM CHLOR 0.9% 1000 ML INJ 1,000 ML IV ONE (12:00)
[2016-09-29] MEDS ORDERED: ONDANSETRON HCL 4 MG/2 ML VIAL IV PUSH ONE (12:00)
--- NOTE | 2016-09-29 12:00 | PD ---
HPI Chief Complaint: Abdominal Pain Time Seen by Provider: 11:45 Travel History International Travel<30 days: No Contact w/Intl Traveler<30days: No Traveled to known affect area: No History of Present Illness HPI Patient is a 26-year-old male presenting to emergency department for evaluation of nausea, vomiting, diarrhea. Patient states this morning he woke up and had a loose stool. He attempted to drink some water which then caused him to feel nauseated and started vomiting. Patient states she's been unable to keep food or fluids down this morning. He reports chills but denies any fevers, chest pain, shortness of breath, headache, abdominal pain. Patient reports a past medical history significant for anxiety as well as pancreatitis. He denies drinking alcohol on a daily basis or excessively. He was feeling fine up until this morning. PFSH Past Medical History Bipolar Disorder: Yes Anxiety: Yes Depression: No Cancer: No Cardiovascular Problems: No Diabetes: No Diminished Hearing: No Endocrine: No GERD: Yes Genitourinary: No Headaches: Yes Immune Disorder: No Musculoskeletal: No Neurologic: No Reproductive: No Respiratory: No Immunizations Current: Yes Pancreatitis: Yes Seizures: Yes (IN CHILDHOOD ) Past Surgical History Appendectomy: Yes Other Surgery: Yes (appendectomy) Social History Alcohol Use: Yes Tobacco Use: Yes (/2 ppd) Substance Use: No Allergies-Medications (Allergen,Severity, Reaction): Coded Allergies: No Known Allergies (Verified , 09/29/16) Reported Meds & Prescriptions Reported Meds & Active Scripts Active Zofran Odt (Ondansetron Odt) 4 Mg Tab 4 Mg SL Q6HR PRN Review of Systems Except as stated in HPI: all other systems reviewed are Neg General / Constitutional: Positive: Chills, No: Fever HENT: No: Headaches, Lightheadedness Cardiovascular: No: Chest Pain or Discomfort Respiratory: No: Shortness of Breath Gastrointestinal: Positive: Nausea, Vomiting, Diarrhea, No: Abdominal Pain, Loss of Appetite Genitourinary: No: Dysuria Musculoskeletal: No: Myalgias Neurologic: No: Dizziness, Syncope, Focal Abnormalities Psychiatric: Positive: Anxiety Physical Exam Narrative GENERAL: Alert, well-developed, well-nourished male. Resting comfortably in no acute distress. SKIN: Warm and dry. HEAD: Atraumatic. Normocephalic. EYES: Pupils equal and round. No scleral icterus. No injection or drainage. ENT: No nasal bleeding or discharge. Mucous membranes pink and moist. NECK: Trachea midline. No JVD. CARDIOVASCULAR: Regular rate and rhythm. RESPIRATORY: No accessory muscle use. Clear to auscultation. Breath sounds equal bilaterally. GASTROINTESTINAL: Abdomen soft, non-tender, nondistended. Hepatic and splenic margins not palpable. Positive bowel sounds, no rebound, no guarding. MUSCULOSKELETAL: Extremities without clubbing, cyanosis, or edema. No obvious deformities. NEUROLOGICAL: Awake and alert. No obvious cranial nerve deficits. Motor grossly within normal limits. Five out of 5 muscle strength in the arms and legs. Normal speech. PSYCHIATRIC: Appropriate mood and affect; insight and judgment normal. Data Data Last Documented VS Vital Signs Date Time Temp Pulse Resp B/P (MAP) Pulse Ox O2 Delivery O2 Flow Rate FiO2 09/29/16 11:48 100 Room Air 09/29/16 11:48 19 09/29/16 11:48 98.1 63 123/79 (94) Orders Orders Complete Blood Count With Diff (09/29/16 09:31) Comprehensive Metabolic Panel (09/29/16 09:31) Urinalysis - C+S If Indicated (09/29/16 09:31) Iv Access Insert/Monitor (09/29/16 09:31) Oxygen Administration (09/29/16 09:31) Oximetry (09/29/16 09:31) Lipase (09/29/16 09:31) Sodium Chlor 0.9% 1000 Ml Inj (Ns 1000 M (09/29/16 12:00) Ondansetron Inj (Zofran Inj) (09/29/16 12:00) Us Abdomen Pancreas (09/29/16 ) Labs Laboratory Tests Test 09/29/16 09:45 White Blood Count 6.6 TH/MM3 Red Blood Count 5.53 MIL/MM3 Hemoglobin 16.3 GM/DL Hematocrit 46.7 % Mean Corpuscular Volume 84.5 FL Mean Corpuscular Hemoglobin 29.5 PG Mean Corpuscular Hemoglobin Concent 34.9 % Red Cell Distribution Width 12.9 % Platelet Count 207 TH/MM3 Mean Platelet Volume 8.3 FL Neutrophils (%) (Auto) 63.3 % Lymphocytes (%) (Auto) 26.3 % Monocytes (%) (Auto) 8.4 % Eosinophils (%) (Auto) 1.5 % Basophils (%) (Auto) 0.5 % Neutrophils # (Auto) 4.2 TH/MM3 Lymphocytes # (Auto) 1.7 TH/MM3 Monocytes # (Auto) 0.6 TH/MM3 Eosinophils # (Auto) 0.1 TH/MM3 Basophils # (Auto) 0.0 TH/MM3 CBC Comment DIFF FINAL Differential Comment Urine Color YELLOW Urine Turbidity CLEAR Urine pH 6.5 Urine Specific [place] 1.029 Urine Protein 30 mg/dL Urine Glucose (UA) NEG mg/dL Urine Ketones NEG mg/dL Urine Occult Blood NEG Urine Nitrite NEG Urine Bilirubin NEG Urine Urobilinogen 2.0 MG/DL Urine Leukocyte Esterase NEG Urine RBC LESS THAN 1 /hpf Urine WBC 1 /hpf Urine Mucus FEW /lpf Microscopic Urinalysis Comment CULT NOT INDICATED Blood Urea Nitrogen 16 MG/DL Creatinine 1.07 MG/DL Random Glucose 95 MG/DL Total Protein 8.5 GM/DL Albumin 4.6 GM/DL Calcium Level 9.5 MG/DL Alkaline Phosphatase 95 U/L Aspartate Amino Transf (AST/SGOT) 25 U/L Alanine Aminotransferase (ALT/SGPT) 20 U/L Total Bilirubin 1.2 MG/DL Sodium Level 136 MEQ/L Potassium Level 3.9 MEQ/L Chloride Level 102 MEQ/L Carbon Dioxide Level 25.3 MEQ/L Anion Gap 9 MEQ/L Estimat Glomerular Filtration Rate 85 ML/MIN Lipase 656 U/L MDM Medical Decision Making Medical Screen Exam Complete: Yes Emergency Medical Condition: Yes Medical Record Reviewed: Yes Interpretation(s) Laboratory Tests Test 09/29/16 09:45 White Blood Count 6.6 TH/MM3 Red Blood Count 5.53 MIL/MM3 Hemoglobin 16.3 GM/DL Hematocrit 46.7 % Mean Corpuscular Volume 84.5 FL Mean Corpuscular Hemoglobin 29.5 PG Mean Corpuscular Hemoglobin Concent 34.9 % Red Cell Distribution Width 12.9 % Platelet Count 207 TH/MM3 Mean Platelet Volume 8.3 FL Neutrophils (%) (Auto) 63.3 % Lymphocytes (%) (Auto) 26.3 % Monocytes (%) (Auto) 8.4 % Eosinophils (%) (Auto) 1.5 % Basophils (%) (Auto) 0.5 % Neutrophils # (Auto) 4.2 TH/MM3 Lymphocytes # (Auto) 1.7 TH/MM3 Monocytes # (Auto) 0.6 TH/MM3 Eosinophils # (Auto) 0.1 TH/MM3 Basophils # (Auto) 0.0 TH/MM3 CBC Comment DIFF FINAL Differential Comment Urine Color YELLOW Urine Turbidity CLEAR Urine pH 6.5 Urine Specific [place] 1.029 Urine Protein 30 mg/dL Urine Glucose (UA) NEG mg/dL Urine Ketones NEG mg/dL Urine Occult Blood NEG Urine Nitrite NEG Urine Bilirubin NEG Urine Urobilinogen 2.0 MG/DL Urine Leukocyte Esterase NEG Urine RBC LESS THAN 1 /hpf Urine WBC 1 /hpf Urine Mucus FEW /lpf Microscopic Urinalysis Comment CULT NOT INDICATED Blood Urea Nitrogen 16 MG/DL Creatinine 1.07 MG/DL Random Glucose 95 MG/DL Total Protein 8.5 GM/DL Albumin 4.6 GM/DL Calcium Level 9.5 MG/DL Alkaline Phosphatase 95 U/L Aspartate Amino Transf (AST/SGOT) 25 U/L Alanine Aminotransferase (ALT/SGPT) 20 U/L Total Bilirubin 1.2 MG/DL Sodium Level 136 MEQ/L Potassium Level 3.9 MEQ/L Chloride Level 102 MEQ/L Carbon Dioxide Level 25.3 MEQ/L Anion Gap 9 MEQ/L Estimat Glomerular Filtration Rate 85 ML/MIN Lipase 656 U/L Vital Signs Date Time Temp Pulse Resp B/P (MAP) Pulse Ox O2 Delivery O2 Flow Rate FiO2 09/29/16 11:48 100 Room Air 09/29/16 11:48 19 09/29/16 11:48 98.1 63 18 123/79 (94) 100 Room Air 09/29/16 11:48 98.1 63 18 123/79 (94) 100 Room Air 09/29/16 09:11 98.8 82 20 131/80 (97) 98 Room Air Differential Diagnosis Pancreatitis vs gastroenteritis vs cholecystitis vs other Narrative Course Patient is a 26-year-old male presenting for evaluation of nausea, vomiting, diarrhea that started upon awakening this morning. Patient appears well, abdominal exam is benign. Patient's vital signs are stable, IV access established. Patient had labs performed in triage. CBC reviewed with no acute findings identified, metabolic panel is unremarkable other than the elevated lipase at 656 and total bilirubin at 1.2. Urinalysis is unremarkable. Ultrasound is negative. Patient was reassessed at 1300, he reports feeling much better. Patient will be given oral fluid challenge at this time. He is requesting to be discharged prior to the eclipse so he doesn't miss it. Patient encouraged to maintain a bland, low residue diet, increasing as tolerated. He was advised to avoid alcohol. He was advised to follow-up with her primary doctor. He was encouraged return to emergency department immediately for any new or worsening symptoms. Patient verbalized understanding of instructions. Patient stable for discharge. Diagnosis Primary Impression: Nausea & vomiting Qualified Codes: R11.2 - Nausea with vomiting, unspecified Additional Impression: Elevated lipase Referrals: Primary Care Physician 2 days Patient Instructions: Acute Nausea and Vomiting (ED), General Instructions Additional Instructions: Follow-up with your primary doctor Avoid alcohol Maintain a bland, low residue diet, increase as tolerated Return to emergency department for any new or worsening symptoms Med/Other Pt SpecificInfo: Prescription(s) given Scripts Ondansetron Odt (Zofran Odt) 4 Mg Tab 4 MG SL Q6HR Y for Nausea/Vomiting, #10 TAB 0 Refills Prov: Candelaria Ch 09/29/16 Disposition: 01 DISCHARGE HOME Condition: Stable Candelaria Ch Sep 29, 2016 12:00
--- NOTE | 2016-09-29 12:45 | RADRPT ---
EXAM DATE/TIME: 09/29/2016 12:10 [facility] COMPARISON: US ABDOMEN - GALLBLADDER, August 15, 2016, 13:26. INDICATIONS : Right upper quadrant pain. MEDICAL HISTORY : Pancreatitis. Seizures. SURGICAL HISTORY : Appendectomy. ENCOUNTER: Initial ACUITY: 1 day PAIN SCORE: 3/10 LOCATION: Right upper quadrant MEASUREMENTS: LIVER: 17.0 cm length COMMON DUCT: 1 mm RIGHT KIDNEY: 10.4 x 4.3 x 5.5 cm FINDINGS: LIVER: Normal echotexture without focal lesion or ductal dilatation. COMMON DUCT: No intraluminal mass or stone visualized. GALLBLADDER: Contains no stones, demonstrates no wall thickening or pericholecystic fluid. PANCREAS: The visualized portions are within normal limits by ultrasound. CONCLUSION: 1. Unremarkable right upper quadrant ultrasound examination. 2. Specifically, no sonographic evidence for cholelithiasis or acute cholecystitis. Franki Quinones MD on September 29, 2016 at 12:42 Board Certified Radiologist. This report was verified electronically.
[2016-09-29] MEDS ORDERED: ZOFR4TAB3 SL (13:05)
== END 2016-09-29 14:45 | disposition home or self-care (01) ==
LOC: NEPD 09:09
DX: R11.2 Nausea with vomiting, unspecified (principal); R74.8 Abnormal levels of other serum enzymes; F17.210 Nicotine dependence, cigarettes, uncomplicated
CPT/HCPCS: 76705; 80053; 81001; 83690; 85025; 96361; 96374; 99285; J2405; J7030

== ENCOUNTER 2016-10-20 19:09 | Emergency (ER) | payer OTHER ==
[~2016-10-20] VITALS: Ht 177.8 cm; Wt 75.0 kg
[~2016-10-20 19:09] MED LIST changes: -CLON1 PO; -HYDR-3516 PO; -PROT40TA PO; +ZOFR4TAB3 SL
[2016-10-20 19:11] VITALS: BP 134/76; PULSE 95; RESP 16; TEMP 99.9; O2SAT 99
[2016-10-20] MEDS ORDERED: IBUPROFEN 400 MG TAB PO ONE (21:15)
[2016-10-20] MEDS ORDERED: SODIUM CHLOR 0.9% 1000 ML INJ 1,000 ML IV ONE (21:15)
[2016-10-20] MEDS ORDERED: SODIUM CHLORIDE 0.9% FLUSH 10 ML FLUSH IV FLUSH PRN (21:15)
--- NOTE | 2016-10-20 21:16 | PD ---
HPI Chief Complaint: GI Complaint Time Seen by Provider: 21:05 Travel History International Travel<30 days: No Contact w/Intl Traveler<30days: No Traveled to known affect area: No History of Present Illness HPI This patient complains of diarrhea. Duration 2 days. Severity is moderate. Has had some low-grade fevers. No nausea or vomiting or abdominal pain. Also complains of sore throat. Does not have any cough or shortness of breath. No alleviating factors. PFSH Past Medical History Bipolar Disorder: Yes Anxiety: Yes Depression: No Cancer: No Cardiovascular Problems: No Diabetes: No Diminished Hearing: No Endocrine: No Gastrointestinal Disorders: Yes (heartburn.) GERD: Yes Genitourinary: No Headaches: Yes Immune Disorder: No Musculoskeletal: No Neurologic: No Psychiatric: Yes Reproductive: No Respiratory: No Immunizations Current: Yes Pancreatitis: Yes Seizures: Yes (IN CHILDHOOD ) Past Surgical History Appendectomy: Yes Other Surgery: Yes (appendectomy) Social History Alcohol Use: Yes (occassional) Tobacco Use: Yes (1/2 ppd) Substance Use: Yes (marijuana) Allergies-Medications (Allergen,Severity, Reaction): Coded Allergies: No Known Allergies (Verified , 10/20/16) Reported Meds & Prescriptions Reported Meds & Active Scripts Active Zofran Odt (Ondansetron Odt) 4 Mg Tab 4 Mg SL Q6HR PRN Review of Systems General / Constitutional: Positive: Fever Eyes: No: Visual changes HENT: Positive: Sore Throat, No: Headaches Cardiovascular: No: Chest Pain or Discomfort Respiratory: No: Shortness of Breath Gastrointestinal: Positive: Diarrhea, No: Abdominal Pain Genitourinary: No: Dysuria Musculoskeletal: No: Pain Skin: No Rash Neurologic: No: Weakness Psychiatric: No: Depression Endocrine: No: Polydipsia Hematologic/Lymphatic: No: Easy Bruising Physical Exam Narrative GENERAL: Well-nourished, well-developed patient in no apparent distress. SKIN: Focused skin assessment reveals no rash and nodules. Skin is Warm and dry. HEAD: Atraumatic. Normocephalic. EYES: Pupils equal and round. No scleral icterus. No injection or drainage. ENT: No nasal bleeding or discharge. Mucous membranes pink and moist. No tonsillar exudate, uvula midline NECK: Trachea midline. No JVD. No meningeal signs CARDIOVASCULAR: Regular rate and rhythm. No murmur appreciated. RESPIRATORY: No accessory muscle use. Clear to auscultation. Breath sounds equal bilaterally. GASTROINTESTINAL: Abdomen soft, non-tender, nondistended. Hepatic and splenic margins not palpable. MUSCULOSKELETAL: No obvious deformities. No clubbing. No cyanosis. No edema. NEUROLOGICAL: Awake and alert. No obvious cranial nerve deficits. Motor grossly within normal limits. Normal speech. PSYCHIATRIC: Appropriate mood and affect; insight and judgment normal. Data Data Last Documented VS Vital Signs Date Time Temp Pulse Resp B/P (MAP) Pulse Ox O2 Delivery O2 Flow Rate FiO2 10/20/16 19:11 99.9 95 16 134/76 (95) 99 Room Air Orders Orders Basic Metabolic Panel (Bmp) (10/20/16 21:13) Complete Blood Count With Diff (10/20/16 21:13) Iv Access Insert/Monitor (10/20/16 21:13) Sodium Chloride 0.9% Flush (Ns Flush) (10/20/16 21:15) Sodium Chlor 0.9% 1000 Ml Inj (Ns 1000 M (10/20/16 21:15) Ibuprofen (Motrin) (10/20/16 21:15) Labs Laboratory Tests Test 10/20/16 21:20 White Blood Count 11.2 TH/MM3 Red Blood Count 4.98 MIL/MM3 Hemoglobin 14.8 GM/DL Hematocrit 42.1 % Mean Corpuscular Volume 84.5 FL Mean Corpuscular Hemoglobin 29.7 PG Mean Corpuscular Hemoglobin Concent 35.2 % Red Cell Distribution Width 12.5 % Platelet Count 162 TH/MM3 Mean Platelet Volume 8.7 FL Neutrophils (%) (Auto) 80.1 % Lymphocytes (%) (Auto) 11.8 % Monocytes (%) (Auto) 7.5 % Eosinophils (%) (Auto) 0.2 % Basophils (%) (Auto) 0.4 % Neutrophils # (Auto) 9.0 TH/MM3 Lymphocytes # (Auto) 1.3 TH/MM3 Monocytes # (Auto) 0.8 TH/MM3 Eosinophils # (Auto) 0.0 TH/MM3 Basophils # (Auto) 0.0 TH/MM3 CBC Comment DIFF FINAL Differential Comment Blood Urea Nitrogen 8 MG/DL Creatinine 0.94 MG/DL Random Glucose 85 MG/DL Calcium Level 9.4 MG/DL Sodium Level 138 MEQ/L Potassium Level 3.6 MEQ/L Chloride Level 105 MEQ/L Carbon Dioxide Level 21.3 MEQ/L Anion Gap 12 MEQ/L Estimat Glomerular Filtration Rate 99 ML/MIN MDM Medical Decision Making Medical Screen Exam Complete: Yes Emergency Medical Condition: Yes Medical Record Reviewed: Yes Differential Diagnosis Colitis, gastroenteritis, diverticulitis Narrative Course I have reviewed the patient's electronic medical record. IV placed I gave him 1 L normal saline IV bolus Motrin given CBC is normal Metabolic profile is normal Patient has a presentation consistent with acute gastroenteritis. He is well- hydrated and stable for outpatient follow-up at this time. Gradual resolution is expected. Diagnosis Primary Impression: Gastroenteritis and colitis, viral Additional Instructions: The patient was advised to follow up with their physician and return if they worsen. Med/Other Pt SpecificInfo: Other Disposition: 01 DISCHARGE HOME Condition: Stable Piero Gtz MD Oct 20, 2016 21:16
[2016-10-20 21:36] LABS: BASOPHIL % 0.4 % (0.0-2.0); EOSINOPHIL % 0.2 % (0.0-4.0); HEMATOCRIT 42.1 % (39.0-51.0); HEMO FLAGS DIFF FINAL; LYMPH % 11.8 % (9.0-44.0); LYMPHOCYTE # 1.3 TH/MM3 (1.0-4.8); MEAN CELL VOLUME 84.5 FL (80.0-100.0); MEAN CORPUSCULAR HEMOGLOBIN 29.7 PG (27.0-34.0); MEAN CORPUSCULAR HGB CONC 35.2 % (32.0-36.0); MONO % 7.5 % (0.0-8.0); NEUT % 80.1 % (16.0-70.0); PLATELET COUNT 162 TH/MM3 (150-450); RED BLOOD COUNT 4.98 MIL/MM3 (4.50-5.90); RED CELL DISTRIBUTION WIDTH 12.5 % (11.6-17.2); WHITE BLOOD COUNT 11.2 TH/MM3 (4.0-11.0)
[2016-10-20 21:49] LABS: BICARBONATE 21.3 MEQ/L (21.0-32.0); POTASSIUM 3.6 MEQ/L (3.5-5.1)
== END 2016-10-20 22:59 | disposition home or self-care (01) ==
LOC: NEPD 19:09
DX: K52.9 Noninfective gastroenteritis and colitis, unspecified (principal); B34.9 Viral infection, unspecified; Z72.0 Tobacco use
CPT/HCPCS: 80048; 85025; 96360; 99284; J7030

== ENCOUNTER 2016-11-09 04:10 | Emergency (ER) | payer OTHER ==
[~2016-11-09] VITALS: Ht 175.3 cm; Wt 78.0 kg
[2016-11-09 04:21] VITALS: BP 134/60; PULSE 93; RESP 14; TEMP 98.3; O2SAT 98
[2016-11-09] MEDS ORDERED: IBUPROFEN 800 MG TAB PO ONE (04:45)
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
[2016-11-09] MEDS ORDERED: DICL75TA PO (05:25)
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
== END 2016-11-09 05:45 ==
LOC: NEPD 04:10
DX: S43.401A Unspecified sprain of right shoulder joint, initial encounter (principal); T14.8XXA Other injury of unspecified body region, initial encounter; Y04.8XXA Assault by other bodily force, initial encounter; Y92.89 Other specified places as the place of occurrence of the external cause
CPT/HCPCS: 73030; 99283

== ENCOUNTER 2017-03-02 10:30 | Emergency (ER) | payer OTHER ==
[2017-03-02] MEDS ORDERED: SODIUM CHLORIDE 0.9% FLUSH 10 ML FLUSH IV FLUSH (12:00)
[2017-03-02] MEDS: KETOROLAC TROMETHAMINE 30 MG/ML (IVP) VIAL IVP (12:10)
[2017-03-02] MEDS: FAMOTIDINE 20 MG/2 ML VIAL IV PUSH (12:10)
[2017-03-02] MEDS: SODIUM CHLOR 0.9% 1000 ML INJ 1,000 ML IV ×2 (12:10→13:26)
[2017-03-02] MEDS: ONDANSETRON HCL 4 MG/2 ML VIAL IVP (12:11)
[2017-03-02 12:29] LABS: BILIRUBIN, URINE NEG (NEG); BLOOD, URINE NEG (NEG); GLUCOSE,URINE NEG (NEG); KETONE, URINE NEG (NEG); NITRITE,URINE NEG (NEG); URINE COLOR LIGHT-YELLOW (YELLW/STRAW); URINE LEUKOCYTE ESTERASE NEG (NEG)
[2017-03-02 12:31] LABS: AUTOMATED NEUTROPHIL # 6.8 TH/MM3 (1.8-7.7); BASOPHIL % 0.5 % (0.0-2.0); EOSINOPHIL # 0.1 TH/MM3 (0-0.4); EOSINOPHIL % 1.2 % (0.0-4.0); HEMATOCRIT 41.2 % (39.0-51.0); HEMO FLAGS DIFF FINAL; HEMOGLOBIN 14.4 GM/DL (13.0-17.0); LYMPH % 18.9 % (9.0-44.0); LYMPHOCYTE # 1.8 TH/MM3 (1.0-4.8); MEAN CELL VOLUME 85.4 FL (80.0-100.0); MEAN CORPUSCULAR HEMOGLOBIN 29.9 PG (27.0-34.0); MEAN PLATELET VOLUME 8.5 FL (7.0-11.0); MONO % 6.4 % (0.0-8.0); MONOCYTE # 0.6 TH/MM3 (0-0.9); PLATELET COUNT 169 TH/MM3 (150-450); RED BLOOD COUNT 4.83 MIL/MM3 (4.50-5.90); RED CELL DISTRIBUTION WIDTH 12.7 % (11.6-17.2); WHITE BLOOD COUNT 9.3 TH/MM3 (4.0-11.0)
[2017-03-02 12:32] LABS: COMMENT (UR) CULT NOT INDICATED; CULTURE IF INDICATED CULT NOT INDICATED
[2017-03-02 12:36] LABS: ALBUMIN 3.9 GM/DL (3.4-5.0); ANION GAP 5 MEQ/L (5-15); AST (GOT) 15 U/L (15-37); BLOOD UREA NITROGEN 6 MG/DL (7-18); CALCIUM 8.8 MG/DL (8.5-10.1); CHLORIDE 108 MEQ/L (98-107); GLOMERULAR FILTRATION RATE 103 ML/MIN (>89); GLUCOSE,RANDOM 84 MG/DL (74-106); LIPASE 508 U/L (73-393); POTASSIUM 4.3 MEQ/L (3.5-5.1); SODIUM (NA) 140 MEQ/L (136-145)
[2017-03-02 12:39] LABS: LACTIC ACID 0.5 mmol/L (0.4-2.0)
[2017-03-02 12:40] LABS: ALKALINE PHOSPHATASE 97 U/L (45-117); ALT (GPT) 19 U/L (12-78); TOTAL BILIRUBIN ADULT 0.6 MG/DL (0.2-1.0); TOTAL PROTEIN 7.3 GM/DL (6.4-8.2)
== END 2017-03-02 14:13 | disposition home or self-care (01) ==
LOC: NEPD 10:30
DX: K52.9 Noninfective gastroenteritis and colitis, unspecified (principal); L03.316 Cellulitis of umbilicus; F17.200 Nicotine dependence, unspecified, uncomplicated; F12.90 Cannabis use, unspecified, uncomplicated
CPT/HCPCS: 74019; 80053; 81001; 83605; 83690; 85025; 86403; 87070; 87205; 87804; 87804-59; 96361; 96374; 96375; 99284-25